=== PATIENT | male | born 1960 | race Two or more races ===

== ENCOUNTER 2016-11-18 13:20 | Emergency (ER) | payer OTHER ==
[~2016-11-18] VITALS: Ht 180.3 cm; Wt 60.1 kg
[~2016-11-18 13:20] MED LIST: APRESOLIN50 MG PO; ASPIR 8181 M1 PO; BUTALB-APAP-CA1 EACH PO; DIOVAN HCT 31 TABLE1 PO; Ecotrin PO; HYDROCHLOROTHIA25 MG PO; LOPRESSOR25 MG PO; LOPRESSOR50 MG PO; NIFEDIPINE10 MG PO; NORVASC10 MG PO; PACERONE200 M1 PO; PLAVIX75 MG GT; PLAVIX75 MG PO; PRAVACHOL40 MG PO; Toprol XL PO; Zestril,Prinivil GT
[2016-11-18 13:45] LABS: EOSINOPHIL (%) 0 % (0-5); HEMATOCRIT 41.6 % (38.0-50.0); IMMATURE GRANULOCYTE (%) 0.2 % (0.0-0.7); INSTRUMENT ABS NEUTROPHIL CT 6.8 K/uL; LYMPHOCYTE COUNT 1.1 K/uL (1.0-2.8); MCH 30.6 PG (29.0-34.0); MCHC 34.9 G/DL (30.0-36.0); MCV 87.8 FL (86-99); MEAN PLAT.VOLUME 11.1 uM^3 (9.0-12.4); MONOCYTE (%) 8.5 % (3-12); MONOCYTE COUNT 0.7 K/uL (0-0.8); NEUTROPHIL (%) 78.4 % (45-76); NEUTROPHIL COUNT 6.8 K/uL (1.8-6.4); PLATELET COUNT 139 K/uL (156-360); RBC DIS.WIDTH-CV 12.5 % (11.8-14.6); RBC DIS.WIDTH-SD 40.5 % (39-53); RED BLOOD COUNT 4.74 M/uL (4.00-5.50); WHITE BLOOD COUNT 8.7 K/uL (4.1-10.2)
[2016-11-18 13:55] LABS: CHLORIDE 103 mEq/L (99-109); INTER. NORMALIZED RATIO 1.1; POTASSIUM 3.3 mEq/L (3.7-5.4); PROTHROMBIN TIME 10.8 (9.2-11.2); PTT 29.2 (25-32); SODIUM 140 mEq/L (136-147)
[2016-11-18 13:58] LABS: GLUCOSE 164 mg/dL (70-99)
[2016-11-18 13:59] LABS: ANION GAP 12 MEQ/L (2-14); TOTAL BILIRUBIN 0.9 mg/dL (0.0-1.0)
[2016-11-18 14:01] LABS: ALKALINE PHOSPHATASE 95 IU/L (3-129); GFR ESTIMATE (CALCULATED) > 59 mL/min/
[2016-11-18 14:02] LABS: UREA NITROGEN (BUN) 11 mg/dL (9-23)
[2016-11-18 14:07] LABS: TROP-I INTERPRETATION INDETERMINATE; TROPONIN-I 0.55 ng/mL (0.0-0.30)
[2016-11-18 17:20] VITALS: BP 90/71
== END 2016-11-18 18:32 | disposition short-term general hospital (02) ==
LOC: EME 13:20 → CATH 14:34 → EME 14:34
PROVIDERS: Emergency Medicine
DX: I71.01 Dissection of thoracic aorta (principal); R94.31 Abnormal electrocardiogram [ECG] [EKG]; I25.10 Atherosclerotic heart disease of native coronary artery without angina pectoris; I25.2 Old myocardial infarction; J45.909 Unspecified asthma, uncomplicated; I10 Essential (primary) hypertension; Z95.5 Presence of coronary angioplasty implant and graft; Z85.118 Personal history of other malignant neoplasm of bronchus and lung; Z79.82 Long term (current) use of aspirin; F17.200 Nicotine dependence, unspecified, uncomplicated
CPT/HCPCS: 71010; 71275; 80053; 81003; 84484; 85025; 85610; 85730; 86900; 86901; 86920; 93005; 99281; 99285; J2270; J2405; J3010; J7050; P9016